=== PATIENT | male | born 1990 | race African-American/Black ===

== ENCOUNTER 2022-02-08 08:56 | Inpatient (IN) | payer OTHER ==
[2022-02-08 09:29] VITALS: BMI 19.0
[2022-02-08] MEDS ORDERED: MAG HYDROX/AL HYDROX/SIMETH 30 ML UNIT-DOSE CUP PO PRN (09:58)
[2022-02-08] MEDS ORDERED: METHOCARBAMOL 500 MG TABLET PO PRN (09:58)
[2022-02-08] MEDS ORDERED: ONDANSETRON *ODT* 4 MG TABLET SL PRN (09:58)
[2022-02-08] MEDS ORDERED: chlordiazePOXIDE HCL 25 MG CAPSULE PO PRN (09:58)
[2022-02-08] MEDS ORDERED: IBUPROFEN 600 MG TABLET (FP) PO PRN (09:58)
[2022-02-08] MEDS ORDERED: NICOTINE 7 MG/24 HOURS TOPICAL PATCH TD PRN (09:58)
[2022-02-08] MEDS ORDERED: DICYCLOMINE HCL 10 MG CAPSULE PO PRN (09:58)
[2022-02-08] MEDS ORDERED: BISMUTH SUBSALICYLATE 262 MG/15 ML BTL PO PRN (09:58)
[2022-02-08] MEDS ORDERED: MAGNESIUM HYDROX 2400MG/30ML ORAL SUSPENSION 30 ML CUP PO PRN (09:58)
[2022-02-08] MEDS ORDERED: NICOTINE POLACRILEX 2 MG GUM BUC PRN (09:58)
[2022-02-08] MEDS ORDERED: IBUPROFEN 400 MG TABLET (FP) PO PRN (09:58)
[2022-02-08] MEDS ORDERED: BENZOCAINE/MENTHOL (CHLORASEPTIC ) LOZENGE MM PRN (09:58)
[2022-02-08] MEDS ORDERED: LOPERAMIDE HCL 2 MG CAPSULE PO PRN (09:58)
[2022-02-08] MEDS ORDERED: hydrOXYzine PAMOATE 25 MG CAPSULE (FP) PO PRN (09:58)
[2022-02-08] MEDS ORDERED: POLYETHYLENE GLYCOL (HEALTHYLAX) 3350 17 GM PACKET PO PRN (09:58)
[2022-02-08] MEDS ORDERED: ACETAMINOPHEN 325 MG TABLET (FP) PO PRN ×2 (09:58)
[2022-02-08] MEDS ORDERED: ALBUTEROL SO4 HFA INHALER IH PRN (10:02)
[2022-02-08] MEDS ORDERED: chlordiazePOXIDE HCL 25 MG CAPSULE ONE (10:42)
[2022-02-08] MEDS: chlordiazePOXIDE HCL 25 MG CAPSULE PO SCH ×3 (10:47→22:40)
[2022-02-08] MEDS: PRENATAL VITAMINS W/ FOLIC ACID TABLET (FP) PO SCH (11:46)
[2022-02-08] MEDS: NICOTINE 10 MG CARTRIDGE (INHALER) IH PRN ×2 (13:37→17:57)
[2022-02-08 14:48] LABS: HEMATOCRIT 42.5 % (35.4-49); HEMOGLOBIN 13.7 GM/dL (11.7-16.9); MCH 31.3 pg (25.7-33.7); MCHC 32.2 g/dl (32.0-35.9); MEAN CELL VOLUME 97.3 fl (80-96); MEAN PLT VOLUME 10.2 fl (7.5-11.1); PLATELET COUNT 279 10^3/uL (134-434); RBC 4.37 M/mm3 (4.00-5.60); RDW 14.2 % (11.9-15.9); WHITE BLOOD COUNT 8.7 K/mm3 (4.0-10.0)
[2022-02-08 14:49] LABS: ALBUMIN 3.4 g/dl (3.4-5.0); BLOOD UREA NITROGEN 12.5 mg/dL (7-18)
[2022-02-08 14:53] LABS: BILIRUBIN,TOTAL 0.4 mg/dL (0.2-1); TOT PROT 6.8 g/dl (6.4-8.2)
[2022-02-08 18:27] LABS: HIV INTERPRETATION NEGATIVE (NEGATIVE)
[2022-02-08] MEDS: THIAMINE HCL 100 MG TABLET (FP) PO SCH (22:40)
[2022-02-08] MEDS: MELATONIN 5 MG TABLETS PO SCH (22:40)
[2022-02-09] MEDS: chlordiazePOXIDE HCL 25 MG CAPSULE PO SCH (05:36)
[2022-02-09] MEDS ORDERED: LORazepam 0.5 MG TABLET PO PRN (11:00)
[2022-02-09] MEDS: PRENATAL VITAMINS W/ FOLIC ACID TABLET (FP) PO SCH (11:16)
[2022-02-09] MEDS: LORazepam 1 MG TABLET PO SCH ×3 (11:16→23:00)
[2022-02-09] MEDS: THIAMINE HCL 100 MG TABLET (FP) PO SCH (23:00)
[2022-02-09] MEDS: MELATONIN 5 MG TABLETS PO SCH (23:01)
[2022-02-10] MEDS ORDERED: chlordiazePOXIDE HCL 25 MG CAPSULE PO SCH (05:00)
[2022-02-10] MEDS: LORazepam 0.5 MG TABLET PO SCH ×2 (05:41→10:24)
[2022-02-10] MEDS: PRENATAL VITAMINS W/ FOLIC ACID TABLET (FP) PO SCH (10:24)
[2022-02-10 13:09] VITALS: BP 149/65; PULSE 101; RESP 18; TEMP 98.4
[2022-02-11] MEDS ORDERED: chlordiazePOXIDE HCL 10 MG CAPSULE PO PRN
[2022-02-11] MEDS ORDERED: LORazepam 0.5 MG TABLET PO ONE (05:00)
[2022-02-11] MEDS ORDERED: chlordiazePOXIDE HCL 10 MG CAPSULE PO SCH (05:00)
[2022-02-12] MEDS ORDERED: chlordiazePOXIDE HCL 10 MG CAPSULE PO SCH (05:00)
[2022-02-13] MEDS ORDERED: chlordiazePOXIDE HCL 10 MG CAPSULE PO ONE (05:00)
== END 2022-02-10 14:42 | disposition left against medical advice (07) | DRG 770 ==
LOC: YASAS 08:56 → Y3N 10:07 → Y6N 10:08
PROVIDERS: ADMIT Allergy & Immunology; ATTEND Surgery
PROC: HZ2ZZZZ Detoxification Services for Substance Abuse Treatment (ICD-10-PCS; principal; 2022-02-08)
DX: F10.230 Alcohol dependence with withdrawal, uncomplicated (principal); F17.210 Nicotine dependence, cigarettes, uncomplicated; F10.282 Alcohol dependence with alcohol-induced sleep disorder; J45.20 Mild intermittent asthma, uncomplicated; K21.9 Gastro-esophageal reflux disease without esophagitis; R63.4 Abnormal weight loss; Z68.1 Body mass index [BMI] 19.9 or less, adult; Z56.0 Unemployment, unspecified; Z59.01 Sheltered homelessness
CPT/HCPCS: 36415; 80053; 85027; 86780; 87389; 87811; 93005; 93010; C9803-CS; Q0162; U0003; U0005

== ENCOUNTER 2023-06-27 10:45 | Inpatient (IN) | payer OTHER ==
[2023-06-27 12:14] VITALS: BMI 19.9
[2023-06-27] MEDS ORDERED: BENZOCAINE/MENTHOL (CHLORASEPTIC ) LOZENGE MM PRN (12:31)
[2023-06-27] MEDS ORDERED: BENZONATATE 200 MG CAPSULE PO PRN (12:31)
[2023-06-27] MEDS ORDERED: NALOXONE HCL 0.4 MG/ML VIAL IM PRN (12:31)
[2023-06-27] MEDS ORDERED: NICOTINE POLACRILEX 2 MG LOZENGE BC PRN (12:31)
[2023-06-27] MEDS ORDERED: IBUPROFEN 400 MG TABLET (FP) PO PRN (12:31)
[2023-06-27] MEDS ORDERED: NALOXONE HCL (KLOXXADO) 8 MG SPRAY NS PRN (12:31)
[2023-06-27] MEDS ORDERED: MAGNESIUM HYDROX 2400MG/30ML ORAL SUSPENSION 30 ML CUP PO PRN (12:31)
[2023-06-27] MEDS ORDERED: POLYETHYLENE GLYCOL (HEALTHYLAX) 3350 17 GM PACKET PO PRN (12:31)
[2023-06-27] MEDS ORDERED: guaiFENesin 600 MG TABLET.ER (FP) PO PRN (12:31)
[2023-06-27] MEDS ORDERED: chlordiazePOXIDE HCL 25 MG CAPSULE PO PRN (12:31)
[2023-06-27] MEDS ORDERED: MAG HYDROX/AL HYDROX/SIMETH 30 ML UNIT-DOSE CUP PO PRN (12:31)
[2023-06-27] MEDS ORDERED: BISMUTH SUBSALICYLATE 262 MG/15 ML BTL PO PRN (12:31)
[2023-06-27] MEDS ORDERED: METHOCARBAMOL 500 MG TABLET PO PRN (12:31)
[2023-06-27] MEDS ORDERED: DICYCLOMINE HCL 10 MG CAPSULE PO PRN (12:31)
[2023-06-27] MEDS ORDERED: LOPERAMIDE HCL 2 MG CAPSULE PO PRN (12:31)
[2023-06-27] MEDS ORDERED: hydrOXYzine PAMOATE 25 MG CAPSULE (FP) PO PRN (12:31)
[2023-06-27] MEDS: ONDANSETRON *ODT* 4 MG TABLET SL PRN (14:04)
[2023-06-27] MEDS: chlordiazePOXIDE HCL 25 MG CAPSULE PO SCH (17:44)
[2023-06-27 18:26] LABS: HIV INTERPRETATION NEGATIVE (NEGATIVE)
[2023-06-27] MEDS: ACETAMINOPHEN 325 MG TABLET (FP) PO PRN (21:29)
[2023-06-27] MEDS: MELATONIN 5 MG TABLETS PO SCH (22:58)
[2023-06-27] MEDS: THIAMINE 100 MG TABLET PO SCH (22:58)
[2023-06-28] MEDS: NICOTINE 14 MG/24 HOURS TOPICAL PATCH TD SCH (10:12)
[2023-06-28] MEDS: PRENATAL VITAMINS W/ FOLIC ACID TABLET (FP) PO SCH (10:12)
[2023-06-28] MEDS: NICOTINE POLACRILEX 4 MG GUM BUC PRN (20:14)
[2023-06-29] MEDS: chlordiazePOXIDE HCL 25 MG CAPSULE PO SCH (05:46)
[2023-06-29] MEDS: IBUPROFEN 600 MG TABLET (FP) PO PRN (17:46)
[2023-06-30] MEDS ORDERED: chlordiazePOXIDE HCL 10 MG CAPSULE PO PRN
[2023-06-30] MEDS: chlordiazePOXIDE HCL 10 MG CAPSULE PO SCH (06:33)
[2023-06-30 09:08] VITALS: RESP 16; TEMP 97.8
[2023-06-30 12:43] VITALS: BP 110/53; PULSE 71
[2023-07-01] MEDS ORDERED: chlordiazePOXIDE HCL 10 MG CAPSULE PO SCH (05:00)
[2023-07-02] MEDS ORDERED: chlordiazePOXIDE HCL 10 MG CAPSULE PO ONE (05:00)
== END 2023-06-30 13:47 | disposition home or self-care (01) | DRG 775 ==
LOC: YASAS 10:45 → Y6N 13:03
PROVIDERS: ADMIT Allergy & Immunology; ATTEND Surgery
PROC: HZ2ZZZZ Detoxification Services for Substance Abuse Treatment (ICD-10-PCS; principal; 2023-06-27)
DX: F10.230 Alcohol dependence with withdrawal, uncomplicated (principal); F17.210 Nicotine dependence, cigarettes, uncomplicated; F10.282 Alcohol dependence with alcohol-induced sleep disorder; J45.20 Mild intermittent asthma, uncomplicated; K21.9 Gastro-esophageal reflux disease without esophagitis; Z56.0 Unemployment, unspecified; Z59.01 Sheltered homelessness
CPT/HCPCS: 36415; 80305; 80307; 86803; 87389; 93005; 93010; Q0162

== ENCOUNTER 2024-04-10 12:08 | Inpatient (IN) | payer OTHER ==
[2024-04-10] MEDS ORDERED: METHOCARBAMOL 500 MG TABLET PO PRN (13:17)
[2024-04-10] MEDS ORDERED: BENZOCAINE/MENTHOL (CHLORASEPTIC ) LOZENGE MM PRN (13:17)
[2024-04-10] MEDS ORDERED: DICYCLOMINE HCL 10 MG CAPSULE PO PRN (13:17)
[2024-04-10] MEDS ORDERED: LOPERAMIDE HCL 2 MG CAPSULE PO PRN (13:17)
[2024-04-10] MEDS ORDERED: NICOTINE POLACRILEX 2 MG GUM BUC PRN (13:17)
[2024-04-10] MEDS ORDERED: guaiFENesin 600 MG TABLET.ER (FP) PO PRN (13:17)
[2024-04-10] MEDS ORDERED: hydrOXYzine PAMOATE 25 MG CAPSULE (FP) PO PRN (13:17)
[2024-04-10] MEDS ORDERED: MAGNESIUM HYDROX 2400MG/30ML ORAL SUSPENSION 30 ML CUP PO PRN (13:17)
[2024-04-10] MEDS ORDERED: ACETAMINOPHEN 325 MG TABLET (FP) PO PRN (13:17)
[2024-04-10] MEDS ORDERED: BISMUTH SUBSALICYLATE 524 MG/30 ML PO PRN (13:17)
[2024-04-10] MEDS ORDERED: POLYETHYLENE GLYCOL (HEALTHYLAX) 3350 17 GM PACKET PO PRN (13:17)
[2024-04-10] MEDS ORDERED: BENZONATATE 200 MG CAPSULE PO PRN (13:17)
[2024-04-10] MEDS ORDERED: ONDANSETRON *ODT* 4 MG TABLET SL PRN (13:17)
[2024-04-10] MEDS ORDERED: IBUPROFEN 600 MG TABLET (FP) PO PRN (13:17)
[2024-04-10] MEDS ORDERED: NALOXONE (NARCAN) HCL 4 MG/0.1 ML SPRAY NS PRN (13:17)
[2024-04-10] MEDS ORDERED: IBUPROFEN 400 MG TABLET (FP) PO PRN (13:17)
[2024-04-10] MEDS ORDERED: MAG HYDROX/AL HYDROX/SIMETH 30 ML UNIT-DOSE CUP PO PRN (13:17)
[2024-04-10] MEDS ORDERED: chlordiazePOXIDE HCL 25 MG CAPSULE PO PRN (13:19)
[2024-04-10] MEDS ORDERED: ALBUTEROL SO4 HFA INHALER IH PRN (14:19)
[2024-04-10] MEDS: chlordiazePOXIDE HCL 25 MG CAPSULE PO SCH (17:14)
[2024-04-10] MEDS: THIAMINE 100 MG TABLET PO SCH (22:33)
[2024-04-10] MEDS: MELATONIN 5 MG TABLETS PO SCH (22:33)
[2024-04-11 09:33] VITALS: BP 118/66; PULSE 80; RESP 20; TEMP 96.9
[2024-04-11] MEDS: PRENATAL VITAMINS W/ FOLIC ACID TABLET (FP) PO SCH (10:08)
[2024-04-11] MEDS: NICOTINE 21 MG/24 HOURS TOPICAL PATCH TD SCH (10:10)
[2024-04-11 12:03] LABS: HEMOGLOBIN 11.5 GM/dL (11.7-16.9); MCH 31.1 pg (25.7-33.7); MCHC 31.9 g/dl (32.0-35.9); MEAN CELL VOLUME 97.5 fl (80-96); MEAN PLT VOLUME 10.4 fl (7.5-11.1); PLATELET COUNT 262 10^3/uL (134-434); RBC 3.69 M/mm3 (4.00-5.60); RDW 20.5 % (11.9-15.9); WHITE BLOOD COUNT 17.9 K/mm3 (4.0-10.0)
[2024-04-11 12:08] LABS: POTASSIUM 3.7 mmol/L (3.5-5.1)
[2024-04-11 12:10] LABS: CALCIUM 8.8 mg/dL (8.5-10.1)
[2024-04-11 12:11] LABS: ALBUMIN 3.5 g/dl (3.4-5.0)
[2024-04-11 12:14] LABS: CREATININE 0.9 mg/dL (0.55-1.3)
[2024-04-11 12:15] LABS: BILIRUBIN,TOTAL 1.1 mg/dL (0.2-1); TOT PROT 7.8 g/dl (6.4-8.2)
[2024-04-12] MEDS ORDERED: chlordiazePOXIDE HCL 25 MG CAPSULE PO SCH (05:00)
[2024-04-13] MEDS ORDERED: chlordiazePOXIDE HCL 10 MG CAPSULE PO PRN
[2024-04-13] MEDS ORDERED: chlordiazePOXIDE HCL 10 MG CAPSULE PO SCH (05:00)
[2024-04-14] MEDS ORDERED: chlordiazePOXIDE HCL 10 MG CAPSULE PO SCH (05:00)
[2024-04-15] MEDS ORDERED: chlordiazePOXIDE HCL 10 MG CAPSULE PO ONE (05:00)
== END 2024-04-11 11:32 | disposition left against medical advice (07) | DRG 770 ==
LOC: YASAS 12:08 → Y3N 13:46
PROVIDERS: ADMIT Allergy & Immunology; ATTEND Allergy & Immunology
PROC: HZ2ZZZZ Detoxification Services for Substance Abuse Treatment (ICD-10-PCS; principal; 2024-04-10)
DX: F10.230 Alcohol dependence with withdrawal, uncomplicated (principal); F12.10 Cannabis abuse, uncomplicated; F17.210 Nicotine dependence, cigarettes, uncomplicated; F32.A Depression, unspecified; F41.9 Anxiety disorder, unspecified; J45.909 Unspecified asthma, uncomplicated; K21.9 Gastro-esophageal reflux disease without esophagitis; Z56.0 Unemployment, unspecified; Z59.00 Homelessness unspecified
CPT/HCPCS: 36415; 80053; 80305; 80307; 85027; 86780; 93005; 93010